=== PATIENT | male | born 1975 ===

== ENCOUNTER 2022-07-20 23:26 | Emergency (ER) | payer BC ==
[2022-07-20 23:36] VITALS: BP 149/97
[2022-07-20 23:46] VITALS: BP 140/90
[2022-07-21 00:01] VITALS: BP 151/93
[2022-07-21 00:16] VITALS: BP 148/92
[2022-07-21 00:50] LABS: HEMATOCRIT 43.4 % (39.0-50.0); HEMOGLOBIN 14.5 g/dl (14.0-18.0); IMMATURE GRANULOCYTES 0.2 % (0.0-5.0); MEAN CELL VOLUME 91.2 fL CALC (80.0-100.0); MEAN CORPUSCULAR HGB 30.5 pG CALC (26.0-32.0); MEAN CORPUSCULAR HGB CONC 33.4 g/dL CAL (32.0-36.0); NEUT# 9.83 thou/uL (1.82-7.42); RED BLOOD COUNT 4.76 mill/uL (4.70-6.10); RED CELL DISTRI WIDTH 13.4 % (11.5-15.5)
[2022-07-21 00:53] LABS: ALBUMIN 4.3 g/dL (3.2-5.0); ALKALINE PHOSPHATASE 62 u/l (38-126); ANION GAP 13 (6-22 (CALC)); BILIRUBIN, TOTAL 0.4 mg/dL (0.0-1.4); BUN 14 mg/dL (9-20); BUN/CREATININE RATIO 13 (12-20 (CALC)); CARBON DIOXIDE 28 mmol/l (22-30); CHLORIDE 103 mmol/l (95-108); CREATININE 1.1 mg/dL (0.7-1.3); GFR FOR AFR.AMER. > 60 ML/MIN (>=60 (CALC)); GFR OTHER RACES > 60 ML/MIN (>=60 (CALC)); POTASSIUM 3.7 mmol/l (3.5-5.1); SGOT/AST 28 u/l (17-59); SODIUM 141 mmol/l (137-146); TOTAL PROTEIN 6.9 g/dL (6.3-8.2)
[2022-07-21 01:20] LABS: URINE BILIRUBIN - DIPSTICK NEGATIVE (NEGATIVE); URINE BLOOD DIPSTICK NEGATIVE (NEGATIVE); URINE COLOR YELLOW; URINE GLUCOSE - DIPSTICK NEGATIVE (NEGATIVE); URINE KETONE NEGATIVE (NEGATIVE); URINE LEUK ESTERASE NEGATIVE (NEGATIVE); URINE PROTEIN - DIPSTICK TRACE mg/dL (NEG-TRACE); URINE UROBILINOGEN - DIPSTICK 0.2 E.U./dL (0.2)
[2022-07-21 01:21] LABS: URINE NITRITE - DIPSTICK NEGATIVE (Negative)
[2022-07-21 04:20] VITALS: BP 138/86
== END 2022-07-21 04:44 | disposition short-term general hospital (02) | DRG 153 ==
LOC: ED 23:26
PROVIDERS: Emergency Medicine
DX: J02.9 Acute pharyngitis, unspecified (principal); R50.9 Fever, unspecified; R93.3 Abnormal findings on diagnostic imaging of other parts of digestive tract; Z20.822 Contact with and (suspected) exposure to COVID-19
CPT/HCPCS: Q9967

== ENCOUNTER 2023-05-03 14:35 | Emergency (ER) | payer BC ==
[~2023-05-03] VITALS: Ht 177.8 cm; Wt 113.4 kg
[2023-05-03] VITALS (12 sets, daily range): BP systolic 126–168; BP diastolic 83–106
[2023-05-03 15:52] LABS: BASO% 0.6 % (0-3); EOS% 7.5 % (0-8); HEMATOCRIT 48.1 % (39.0-50.0); HEMOGLOBIN 15.7 g/dl (14.0-18.0); IMMATURE GRANULOCYTES 0.4 % (0.0-5.0); LYMPH% 35.8 % (15-41); MEAN CELL VOLUME 89.2 fL CALC (80.0-100.0); MEAN CORPUSCULAR HGB 29.1 pG CALC (26.0-32.0); MEAN CORPUSCULAR HGB CONC 32.6 g/dL CAL (32.0-36.0); MONO% 8.1 % (2-13); NEUT# 3.29 thou/uL (1.82-7.42); NEUT% 47.6 % (42-76); RED BLOOD COUNT 5.39 mill/uL (4.70-6.10); RED CELL DISTRI WIDTH 12.9 % (11.5-15.5)
[2023-05-03 16:04] LABS: ALBUMIN 4.1 g/dL (3.2-5.0); ALKALINE PHOSPHATASE 71 u/l (38-126); ANION GAP 9 (6-22 (CALC)); BILIRUBIN, TOTAL 0.7 mg/dL (0.2-1.3); BUN 14 mg/dL (9-20); BUN/CREATININE RATIO 14 (12-20 (CALC)); CARBON DIOXIDE 29 mmol/l (22-30); CHLORIDE 107 mmol/l (95-108); GFR FOR AFR.AMER. > 60 ML/MIN (>=60 (CALC)); GFR OTHER RACES > 60 ML/MIN (>=60 (CALC)); POTASSIUM 3.8 mmol/l (3.5-5.1); SGOT/AST 47 u/l (17-59); SODIUM 141 mmol/l (137-146); TOTAL PROTEIN 7.3 g/dL (6.3-8.2)
== END 2023-05-03 19:26 | disposition home or self-care (01) | DRG 392 ==
LOC: ED 14:35
PROVIDERS: Family Medicine
DX: A05.9 Bacterial foodborne intoxication, unspecified (principal); E86.0 Dehydration; Z20.822 Contact with and (suspected) exposure to COVID-19

== ENCOUNTER 2023-06-19 19:31 | Emergency (ER) | payer SELFPAY ==
[~2023-06-19] VITALS: Ht 177.8 cm; Wt 104.0 kg
[2023-06-19 21:29] LABS: BASO% 0.8 % (0-3); EOS% 2.2 % (0-8); HEMATOCRIT 43.7 % (39.0-50.0); HEMOGLOBIN 14.6 g/dl (14.0-18.0); IMMATURE GRANULOCYTES 0.2 % (0.0-5.0); LYMPH% 13.3 % (15-41); MEAN CELL VOLUME 89.2 fL CALC (80.0-100.0); MEAN CORPUSCULAR HGB 29.8 pG CALC (26.0-32.0); MEAN CORPUSCULAR HGB CONC 33.4 g/dL CAL (32.0-36.0); MONO% 12.4 % (2-13); NEUT# 4.43 thou/uL (1.82-7.42); NEUT% 71.1 % (42-76); RED BLOOD COUNT 4.9 mill/uL (4.70-6.10); RED CELL DISTRI WIDTH 12.9 % (11.5-15.5)
[2023-06-19] MEDS ORDERED: PAXLOVID PO (22:18)
[2023-06-19 22:37] VITALS: BP 162/76
== END 2023-06-19 23:32 | disposition home or self-care (01) | DRG 179 ==
LOC: ED 19:31
PROVIDERS: Family Medicine
DX: U07.1 COVID-19 (principal); R09.89 Other specified symptoms and signs involving the circulatory and respiratory systems; R05.9 Cough, unspecified; R51.9 Headache, unspecified; M79.10 Myalgia, unspecified site

== ENCOUNTER 2023-06-26 09:31 | Emergency (ER) | payer SELFPAY ==
[~2023-06-26 09:31] MED LIST: PAXLOVID PO
== END 2023-06-26 09:43 | disposition left against medical advice (07) | DRG 951 ==
LOC: ED 09:31 → LWOBS 09:43
DX: Z53.21 Procedure and treatment not carried out due to patient leaving prior to being seen by health care provider (principal)